=== PATIENT | female | born 1985 | race Caucasian/White ===

== ENCOUNTER 2021-08-30 04:41 | Emergency (ER) | payer OTHER ==
[~2021-08-30] VITALS: Ht 165.1 cm; Wt 71.4 kg
--- NOTE | 2021-08-30 05:27 | PHYS DOC ---
Past History Past Surgical History: , Other Additional Past Surgical Histo: RIGHT FOOT General Adult EDM: Chief Complaint: BLOODY STOOL HPI: HPI: 36-year-old female presents with 3-week history of bloody stools. The patient states that she has had intermittent bright red blood with her bowel movements for about 3 weeks. For the first week she was on her menstrual cycle so she did not think much of it. After her menstrual cycle stopped, she continued to have bright red blood in her stool. It is mostly just when she wipes there are occasional drops in the toilet. She presents this morning because she woke up at 2 AM and felt like she had a fever. Her temperature is 100.4. She has been seeing her primary physician for her bloody stools and they told her she had a fever to go to the emergency room. Her blood work was reported to be normal, but she did not get the results of her stool samples. Patient denies any significant changes in her habits. She has brown loose stool and mucus with m ost bowel movements. She has not had a normal bowel movement in 3 weeks. She denies any abdominal pain. She has had vomiting yesterday and feels nauseous this morning. Review of Systems: Review of Systems: Constitutional: Fever Eyes: Denies change in visual acuity HENT: Denies nasal congestion or sore throat Respiratory: Denies cough or shortness of breath Cardiovascular: Denies chest pain or edema GI: nausea, vomiting, bloody stools, diarrhea : Denies dysuria Musculoskeletal: Denies back pain or joint pain Integument: Denies rash Neurologic: Denies headache, focal weakness or sensory changes Endocrine: Denies polyuria or polydipsia Lymphatic: Denies swollen glands Psychiatric: Denies depression or anxiety Current Medications: Current Meds: Current Medications Medications (Trade) Dose Ordered Sig/Ada Start Time Stop Time Status Last Admin Dose Admin Info (Do NOT chart on this entry -- for MONITORING) 1 each PRN DAILY PRN 08/30/21 05:30 09/01/21 05:29 Iohexol (Omnipaque 300 Mg/ml) 75 ml 1X ONCE 08/30/21 05:30 08/30/21 05:31 Allergies: Allergies: Allergies Coded Allergies Type Severity Reaction Last Updated Verified Opioids - Morphine Analogues Allergy Intermediate BRADYCARDIA 08/30/21 Yes Opioids-Meperidine and Related Allergy Intermediate BRADYCARDIA 08/30/21 Yes Opioids-Methadone and Related Allergy Intermediate BRADYCARDIA 08/30/21 Yes Physical Exam: PE: Constitutional: Well developed, well nourished, no acute distress, non-toxic appearance. [] HENT: Normocephalic, atraumatic, bilateral external ears normal, oropharynx moist, no oral exudates, nose normal. [] Eyes: PERRLA, EOMI, conjunctiva normal, no discharge. [] Neck: Normal range of motion, no tenderness, supple, no stridor. [] Cardiovascular: Heart rate regular rhythm, no murmur [] Lungs & Thorax: Bilateral breath sounds clear to auscultation [] Abdomen: Bowel sounds normal, soft, no tenderness, no masses, no pulsatile masses. [] Skin: Warm, dry, no erythema, no rash. [] Back: No tenderness, no CVA tenderness. [] Extremities: No tenderness, no cyanosis, no clubbing, ROM intact, no edema. [] Neurologic: Alert and oriented X 3, normal motor function, normal sensory fu nction, no focal deficits noted. [] Psychologic: Affect normal, judgement normal, mood normal. [] Current Patient Data: Labs: Laboratory Tests Test 08/30/21 04:21 POC Urine HCG, Qualitative hcg negative (Negative) Vital Signs: Vital Signs Date Time Temp Pulse Resp B/P (MAP) Pulse Ox O2 Delivery O2 Flow Rate FiO2 08/30/21 05:04 98.9 96 18 144/88 (106) 97 Room Air EKG: EKG: [] Radiology/Procedures: Radiology/Procedures: [] Impressions: CT ABDOMEN+PELVIS W History: Rectal bleeding for 3 weeks. History of . Comparison: None. Technique: CT abdomen and pelvis with intravenous contrast. Findings: The lung bases are clear. The liver, gallbladder, pancreas, spleen, adrenal glands, and kidneys are unremarkable. The stomach is decompressed. The small bowel is unremarkable. Normal appendix. Minimal wall thickening at the rectum. The colon is otherwise unremarkable. The bladder is decompressed. The uterus is within normal limits. Left ovarian corpus luteal cyst. No intra-abdominal free air or free fluid. Soft tissues are within normal limits. Degenerative disc disease of the lumbar spine greatest at L4-L5. No acute osseous abnormality. Impression: 1. Mild wall thickening at the rectum may represent a proctocolitis. Otherwise no significant abnormality in the abdomen and pelvis. ------ Exposure: One or more of the following individualized dose reduction techniques were utilized for this examination: 1. Automated exposure control 2. Adjustment of the mA and/or kV according to patient size 3. Use of iterative reconstruction technique. Electronically signed by: Aric Monroy MD (08/30/2021 6:03 AM) [facility] DICTATED AND SIGNED BY: ARIC MONROY MD DATE: 08/30/21551 CC: LUIS PÉREZ DO; ASHUTOSH TRACY APRN ~ Heart Score: C/O Chest Pain: N/A Risk Factors: Risk Factors: DM, Current or recent (<one month) smoker, HTN, HLP, family history of CAD, obesity. Risk Scores: Score 0 - 3: 2.5% MACE over next 6 weeks - Discharge Home Score 4 - 6: 20.3% MACE over next 6 weeks - Admit for Clinical Observation Score 7 - 10: 72.7% MACE over next 6 weeks - Early Invasive Strategies Course & Med Decision Making: Course & Med Decision Making Pertinent Labs and Imaging studies reviewed. (See chart for details) The patient's labs are unremarkable. CT scan is pending. The patient's CT of the abdomen pelvis shows thickened wall of the distal large bowel with concern for proctocolitis. I will treat the patient with Cipro and Flagyl. She is stable for discharge at this time. [] Dragon Disclaimer: Dragemily Disclaimer: This electronic medical record was generated, in whole or in part, using a voice recognition dictation system. Departure Departure: Impression: Primary Impression: Proctocolitis Disposition: HOME / SELF CARE / HOMELESS Condition: STABLE Referrals: ASHUTOSH TRACY APRN (PCP) Patient Instructions: Colitis Scripts Metronidazole (METRONIDAZOLE) 500 Mg Tablet 1 TAB PO BID for colitis for 7 Days, #14 TAB 0 Refills Prov: LUIS PÉREZ DO 08/30/21 LUIS PÉREZ DO Aug 30, 2021 05:27
[2021-08-30] MEDS ORDERED: IOHEXOL 300 MG/ML 75 ML VIAL. IV ONE (05:30)
[2021-08-30] MEDS ORDERED: CONTRAST GIVEN. MC PRN (05:30)
[2021-08-30 05:38] LABS: BASO % 0 % (0-3); EOS # 0.1 x10^3/uL (0.0-0.7); EOS % 1 % (0-3); HEMATOCRIT 38.8 % (36.0-47.0); HEMOGLOBIN 13.5 g/dL (12.0-15.5); LYMPH # 0.7 x10^3/uL (1.0-4.8); LYMPH % 11 % (24-48); MEAN CORPUSCULAR HEMOGLOBIN 31 pg (25-35); MEAN CORPUSCULAR HGB CONC 35 g/dL (31-37); MEAN CORPUSCULAR VOLUME 89 fL (79-100); MONO # 0.4 x10^3/uL (0.0-1.1); MONO % 7 % (0-9); NEUT % 81 % (31-73); PLATELET COUNT 212 x10^3/uL (140-400); RED BLOOD COUNT 4.38 x10^6/uL (3.50-5.40); RED CELL DISTRIBUTION WIDTH 12.6 % (11.5-14.5); WHITE BLOOD COUNT 6.2 x10^3/uL (4.0-11.0)
[2021-08-30 05:45] LABS: CALCIUM 9.2 mg/dL (8.5-10.1); CREATININE 0.7 mg/dL (0.6-1.0); GFR 94.2; POTASSIUM 3.5 mmol/L (3.5-5.1)
[2021-08-30 05:47] LABS: BACTERIA,URINE MANY /HPF (0-FEW); CLARITY,URINE CLEAR; COLOR,URINE YELLOW; GLUCOSE,URINE NEG (NEG); NITRITE,URINE NEG (NEG); SQUAMOUS EPITHELIAL CELL,UR MANY /LPF; UROBILINOGEN,URINE 0.2 mg/dL (0.2 mg/dL)
[2021-08-30 05:51] LABS: ALBUMIN 4.3 g/dL (3.4-5.0); ALBUMIN/GLOBULIN RATIO 1.5 (1.0-1.7); TOTAL BILIRUBIN 1.1 mg/dL (0.2-1.0); TOTAL PROTEIN 7.1 g/dL (6.4-8.2)
[2021-08-30] MEDS ORDERED: ONDANSETRON PF 4 MG/2 ML VIAL. IVP ONE (06:00)
[2021-08-30] MEDS ORDERED: IV NORMAL SALINE 1,000ML 1,000 ML IV ONE (06:00)
--- NOTE | 2021-08-30 06:05 | RAD ---
CT ABDOMEN+PELVIS W History: Rectal bleeding for 3 weeks. History of . Comparison: None. Technique: CT abdomen and pelvis with intravenous contrast. Findings: The lung bases are clear. The liver, gallbladder, pancreas, spleen, adrenal glands, and kidneys are u nremarkable. The stomach is decompressed. The small bowel is unremarkable. Normal appendix. Minimal wall thickenin g at the rectum. The colon is otherwise unremarkable. The bladder is decompressed. The uterus is within normal limits. Left ovarian corpus luteal cyst. No intra-abdominal free air or free fluid. Soft tissues are within normal limits. Degenerative disc dise ase of the lumbar spine greatest at L4-L5. No acute osseous abnormality. Impression: 1. Mild wall thickening at the rectum may represent a proctocolitis. Otherwise no significant abnorm ality in the abdomen and pelvis. ------ Exposure: One or more of the following individualized dose reduction techniques were utilized for thi s examination: 1. Automated exposure control 2. Adjustment of the mA and/or kV according to patient size 3. Use of iterative reconstruction technique. Electronically signed by: Aric Monroy MD (08/30/2021 6:03 AM) [facility]
[2021-08-30] MEDS ORDERED: METR-34 PO (06:10)
[2021-08-30] MEDS ORDERED: CIPR500T2 PO (06:12)
[2021-08-30 06:54] VITALS: BP 128/81
== END 2021-08-30 06:54 | disposition home or self-care (01) ==
LOC: ER 04:41
DX: K51.30 Ulcerative (chronic) rectosigmoiditis without complications (principal); R11.2 Nausea with vomiting, unspecified; Z98.890 Other specified postprocedural states; Z88.5 Allergy status to narcotic agent
CPT/HCPCS: 36415; 74177; 80053; 81001; 81025; 85025; 87086; 96361; 96374; 99285; J2405; J7030; Q9967